=== PATIENT | male | born 2000 | race Caucasian/White ===

== ENCOUNTER 2022-01-05 13:11 | Outpatient (REF) | payer MEDICAID, SELFPAY ==
[2022-01-05 14:45] LABS: COVID-19 Test Negative (Negative)
== END 2022-01-05 13:12 | disposition home or self-care (01) ==
LOC: HO.LAB 13:11
PROVIDERS: Visit Provider Internal Medicine
DX: Z20.822 Contact with and (suspected) exposure to COVID-19 (principal)
CPT/HCPCS: 87635; C9803

== ENCOUNTER 2024-12-17 19:48 | Emergency (ER) | payer MEDICAID, SELFPAY ==
--- NOTE | 2024-12-17 19:50 | ED_ITS ---
HPI - General Adult General Chief complaint: Arrhythmia/Palpitations Stated complaint: tachycardia, sob Time Seen by Provider: 12/18/24 00:14 Source: patient Mode of arrival: ambulatory Limitations: no limitations History of Present Illness ED Provider: HPI narrative: Patient otherwise healthy having diarrhea today about 5-6 times watery stool noticed heart rate of 150s on standing no dizziness no chest pain no history of similar episode in the past no syncope episode Related Data Allergies Allergy/AdvReac Type Severity Reaction Status Date / Time No Known Allergies Allergy Verified 12/17/24 19:53 Review of Systems 2 Review of Systems: Yes all other systems are reviewed and are negative [facility] Social History Social History Smoked in Last 30 Days: No Use of substances other than those prescribed or required for medical reasons: No Advance Directives: No Advance Directives Information Provided: No Do you have a plan to hurt others: No Plan Physical Exam ED Vital Signs: Vital Signs - 24 hr 12/17/24 19:51 12/18/24 00:00 12/18/24 00:25 Temperature 97.5 F 100.0 F Pulse Rate 111 H 84 83 Respiratory Rate 18 16 Blood Pressure 102/68 132/70 125/65 Pulse Oximetry 97 100 Oxygen Delivery Method Room Air 12/18/24 00:25 12/18/24 00:26 12/18/24 00:44 Temperature 99.7 F Pulse Rate 99 106 H 106 H Respiratory Rate 16 Blood Pressure 129/68 123/71 123/71 Pulse Oximetry 98 Oxygen Delivery Method Room Air BMI result Body Mass Index 31.6 Appearance: Alert. Oriented X3. No acute distress. Eyes: No pallor or icterus ENT: Pharynx normal. Oral Mucosa moist Neck: Normal inspection. Neck supple. CVS: Normal heart rate and rhythm. Pulses normal. Tachycardic on standing heart rate 80-110 asymptomatic blood pressure remained stable Respiratory: No respiratory distress. Equal air entry bilateral, no wheezing/rales/rhonchi Abdomen: Soft and nontender. Bowel sounds are present, no mass palpable, no CVA tenderness Skin: Skin warm and dry. Normal skin color. Normal skin turgor. Extremities: No lower extremity edema. No calf tenderness Neuro: Oriented X 3. No motor deficit. Course Course Course Narrative: RME performed by Betsey Neff PA-C. Patient is a 24 year old assigned male at presenting to the emergency department with tachycardia. Patient states his heart rate went up to 157 and he has been having diarrhea. Detailed physical exam and review of systems are deferred to the radial drill operator. EKG, labs, and swabs ordered. Patient placed back in the waiting room pending room availability and results. Medications Administered Discontinued Medications Generic Name Dose Route Start Last Admin Trade Name Freq PRN Reason Stop Dose Admin Loperamide HCl 2 mg 12/18/24 00:29 12/18/24 00:40 Loperamide Hcl 2 Mg Capsule PO 12/18/24 00:30 2 mg ONCE ONE Administration Medical Decision Making Medical Decision Making [facility] Narrative: Patient with postural orthostatic tachycardia without significant drop in blood pressure had watery stool today likely the cause no prior history in the past mother does have history of AFib patient's labs are stable EKG with sinus tachycardia with heart rate of 107 Differential Diagnosis Differential Diagnoses: The differential diagnosis associated with the presentation includes AFib/SVT/POTS Lab Data [facility] Lab Attestation statement: I reviewed the patient's lab results. 12/17/24 20:09 12/17/24 20:09 Labs: Lab Results 12/17/24 12/17/24 Range/Units 20:09 22:10 WBC 9.4 (4.8-10.8) X10*3/uL RBC 5.02 (4.60-5.80) X10*6/uL Hgb 15.2 (14.0-18.0) g/dl Hct 44.4 (42.0-52.0) % MCV 88.4 (80.0-98.0) fL MCH 30.3 (27.0-33.0) pg MCHC 34.2 (31.0-36.0) g/dl RDW 12.1 (11.0-16.0) % Plt Count 314 (160-400) X10*3/uL MPV 9.7 (9.4-12.4) fL Immature Gran % (Auto) 0.3 (0.0-0.4) % Neut % (Auto) 81.7 H (45-73) % Lymph % (Auto) 8.5 L (20-40) % [place] % (Auto) 9.4 (2-11) % Eos % (Auto) 0.1 (0-4) % Baso % (Auto) 0.0 (0-2) % Lymph # (Auto) 0.8 L (1.2-4.9) X10*3/uL [place] # (Auto) 0.9 (0.1-1.2) X10*3/uL Eos # (Auto) 0.0 (0.0-0.4) X10*3/uL Baso # (Auto) 0.0 (0.0-0.2) X10*3/uL Abs Immat Gran (auto) 0.03 (0.00-0.03) X10*3/uL Absolute Neuts (auto) 7.7 (2.0-8.3) x10*3/uL Absolute Nucleated RBC 0.000 (0.0-0.012) X10*3/uL Nucleated RBC % (auto) 0.0 (0.0-0.2) /100WBC Sodium 139 (135-145) mmol/L Potassium 3.7 (3.3-5.1) mmol/L Chloride 106 (96-108) mmol/L Carbon Dioxide 24 (22-29) mmol/L Anion Gap 13 (12-20) BUN 18 H (9-16) mg/dL Creatinine 0.97 (0.5-1.4) mg/dL Estim Creat Clear Calc 158.7 Estimated GFR > 60 Random Glucose 103 (60-115) mg/dL Calcium 9.1 (8.4-10.2) mg/dL Magnesium 1.8 (1.6-2.6) mg/dL Total Bilirubin 1.0 (0.0-1.0) mg/dL AST 23 (5-37) U/L ALT 18 (0-40) U/L Alkaline Phosphatase 66 (39-117) U/L Troponin I High Sens < 2.7 (<3.5-35.0) ng/L Total Protein 8.1 H (6.5-8.0) g/dL Albumin 4.4 (3.5-5.0) g/dL Urine Color Dark Yellow Urine Appearance Clear Urine pH 6.0 (5.0-9.0) Ur Specific [place] >= 1.030 H (1.005-1.025) Urine Protein 30 (1+) H (Neg-Trace) mg/dL Urine Glucose (UA) Negative (Negative) mg/dL Urine Ketones Trace (Negative) mg/dL Urine Blood Negative (Negative) Urine Nitrite Negative (Negative) Ur Leukocyte Esterase Negative (Negative) Urine RBC 0-2 (0-2) /HPF Urine WBC 0-5 (0-5) /HPF Ur Squamous Epith Cells 3-5 (0-2) /HPF Urine Bacteria None Seen (None Seen) Hyaline Casts 0-2 (0-2) /LPF Influenza Type A (PCR) NEGATIVE (Negative) Influenza Type B (PCR) NEGATIVE (Negative) RSV RNA Qual (PCR) NEGATIVE (Negative) SARS-CoV-2 RNA (RT-PCR) NEGATIVE (Negative) Independent Interpretation I performed an independent interpretation of an: EKG Interpretation: Sinus tachycardia heart rate 107 beats per minute no acute STT wave changes no acute ischemia Discharge Plan Discharge Clinical Impression: POTS (postural orthostatic tachycardia syndrome) Patient Disposition: Home, Self-Care Instructions: Heart Palpitations (ED) Additional Instructions: You have palpitation likely from volume loss from diarrhea possible you might have POTS syndrome Drink plenty of water at least 3 L of fluids a day Follow with your PCP if symptoms continue for further management Stand Alone Forms: Work/School Release Interventions: ED Discharge Assessment Last Done: 12/18/24 00:44 Discharge Date/Time: 12/18/24 00:45 Print Language: Tajik
[2024-12-17 19:51] VITALS: BP 102/68; PULSE 111; RESP 18; TEMP 36.4; O2SAT 97; BMI 31.6
--- NOTE | 2024-12-17 19:52 | ECG_ITS ---
Test Reason : TACHYCARDIA Blood Pressure : */* mmHG Vent. Rate : 107 BPM Atrial Rate : 107 BPM P-R Int : 140 ms QRS Dur : 102 ms QT Int : 320 ms P-R-T Axes : 54 -9 12 degrees QTcB Int : 427 ms Sinus tachycardia Minimal voltage criteria for LVH, may be normal variant ( R in aVL ) Borderline ECG No previous ECGs available Referred By: Betsey Neff Electronically Signed By: MANAV LONGORIA
[2024-12-17 20:16] LABS: MANUAL DIFF FLAG NO
[2024-12-17 20:17] LABS: Eosinophils Percent Auto 0.1 % (0-4); Hematocrit 44.4 % (42.0-52.0); Hemoglobin 15.2 g/dl (14.0-18.0); Imm Gran Abs Auto 0.03 X10*3/uL (0.00-0.03); Imm Gran Pct Auto 0.3 % (0.0-0.4); Lymphocytes Absolute Auto 0.8 X10*3/uL (1.2-4.9); Lymphocytes Percent Auto 8.5 % (20-40); Mean Corpuscular HGB Conc 34.2 g/dl (31.0-36.0); Mean Corpuscular Hemoglobin 30.3 pg (27.0-33.0); Mean Corpuscular Volume 88.4 fL (80.0-98.0); Mean Platelet Volume 9.7 fL (9.4-12.4); Monocytes Absolute Auto 0.9 X10*3/uL (0.1-1.2); Monocytes Percent Auto 9.4 % (2-11); Neutrophils Absolute Auto 7.7 x10*3/uL (2.0-8.3); Neutrophils Percent Auto 81.7 % (45-73); Platelet Count 314 X10*3/uL (160-400); Red Blood Count 5.02 X10*6/uL (4.60-5.80); Red Cell Distribution Width 12.1 % (11.0-16.0); White Blood Count 9.4 X10*3/uL (4.8-10.8)
[2024-12-17 20:31] LABS: Alanine Aminotransferase 18 U/L (0-40); Albumin Level 4.4 g/dL (3.5-5.0); Alkaline Phosphatase 66 U/L (39-117); Anion Gap 13 (12-20); Aspartate Amino Transferase 23 U/L (5-37); Blood Urea Nitrogen 18 mg/dL (9-16); Calcium 9.1 mg/dL (8.4-10.2); Carbon Dioxide 24 mmol/L (22-29); Chloride 106 mmol/L (96-108); Creatinine Clr Calc Pharmacy 158.7; Estimated Glomerular Filt Rate > 60; Glucose Random 103 mg/dL (60-115); Magnesium 1.8 mg/dL (1.6-2.6); Potassium 3.7 mmol/L (3.3-5.1); Sodium 139 mmol/L (135-145); Total Protein 8.1 g/dL (6.5-8.0)
[2024-12-17 20:38] LABS: Troponin-I High Sensitivity < 2.7 ng/L (<3.5-35.0)
[2024-12-17 20:53] LABS: Influenza A PCR NEGATIVE (Negative); Influenza B PCR NEGATIVE (Negative); Resp Syncy Virus RNA Qual PCR NEGATIVE (Negative); SARS COV2 PCR INHOUSE NEGATIVE (Negative)
[2024-12-17 22:28] LABS: Appearance Urine Clear; Color Urine Dark Yellow; Glucose Urine UA Negative (Negative); Leukocyte Esterase Urine Negative (Negative); Nitrite Urine Negative (Negative); Specific Gravity - Urine >= 1.030 (1.005-1.025); UMIC TRIGGER UACC YES; Urine Blood Negative (Negative); Urine Ketones Trace mg/dL (Negative); Urine Protein 30 (1+) mg/dL (Neg-Trace)
[2024-12-17 22:31] LABS: Bacteria Urine None Seen (None Seen); Hyaline Casts Urine 0-2 /LPF (0-2); RBC Urine 0-2 /HPF (0-2); WBC Urine 0-5 /HPF (0-5)
[2024-12-18] VITALS: BP 132/70; PULSE 84; RESP 16; TEMP 37.8; O2SAT 100
[2024-12-18 00:25] VITALS: BP 125/65; BP 129/68; PULSE 83; PULSE 99
[2024-12-18 00:26] VITALS: BP 123/71; PULSE 106
[2024-12-18] MEDS: Loperamide HCl 2 MG CAPSULE PO (00:40)
[2024-12-18 00:44] VITALS: BP 123/71; PULSE 106; RESP 16; TEMP 37.6; O2SAT 98
== END 2024-12-18 00:45 | disposition home or self-care (01) ==
PROVIDERS: Physician Assistant Medical; Emergency Provider Internal Medicine; PCP Family Medicine
DX: G90.A Postural orthostatic tachycardia syndrome [POTS] (principal); I49.9 Cardiac arrhythmia, unspecified; R00.2 Palpitations; R06.02 Shortness of breath; Z03.818 Encounter for observation for suspected exposure to other biological agents ruled out; Z79.899 Other long term (current) drug therapy
CPT/HCPCS: 0241U; 80053; 81001; 83735; 84484; 85025; 93005; 99284

== ENCOUNTER → 2024-12-17 19:52 | Outpatient (BNV) | payer MEDICAID, SELFPAY | PROVIDERS: Emergency Provider Internal Medicine; PCP Family Medicine; Visit Provider Internal Medicine | DX: R00.0 Tachycardia, unspecified (principal) | CPT/HCPCS: 93010 ==